=== PATIENT | male | born 1950 | race African-American/Black ===

== ENCOUNTER 2019-01-09 12:26 | Emergency (ER) | payer MEDICARE ==
[~2019-01-09] VITALS: Ht 167.6 cm; Wt 63.2 kg
[2019-01-09 13:06] VITALS: Ht 167.6 cm; Wt 63.2 kg
[2019-01-09] MEDS ORDERED: NEURONTIN 300300 MG PO (15:53)
[2019-01-09 16:18] VITALS: BP 149/71
== END 2019-01-09 16:13 | disposition home or self-care (01) ==
LOC: D.ER 12:26
DX: B02.9 Zoster without complications (principal)

== ENCOUNTER 2020-01-09 11:25 | Inpatient (IN) | payer MEDICARE ==
[~2020-01-09] VITALS: Ht 167.6 cm; Wt 59.0 kg
[~2020-01-09 11:25] MED LIST: NEURONTIN 300300 MG PO
[2020-01-09 11:59] LABS: BASOPHILS 0.1 % (0-2); EOSINOPHILS 0 % (0-7); HEMATOCRIT 39.7 % (42.0-54.0); HEMOGLOBIN 12.7 g/dL (13.5-17.5); IMMATURE GRANULOCYTES 0.3 % (0-5); LYMPHOCYTES 9.1 % (15-50); MCH 28.3 pg (26.0-34.0); MCV 88.6 fL (80.0-100.0); MEAN PLATELET VOLUME 10.9 fL (7.4-10.4); MONOCYTES 8.9 % (2-11); NEUTROPHILS 81.6 % (40-80); PLATELET COUNT 236 10x3/uL (130-400); RBC 4.48 10x6/uL (4.20-6.10); RDW 16.3 % (11.5-14.5); WBC 8.9 10x3/uL (4.8-10.8)
[2020-01-09 12:06] LABS: INR 1.18 (0.85-1.17); PROTIME 14.9 SECONDS (11.6-15.0)
[2020-01-09 12:11] LABS: CALC OSMOLALITY 266 mosm/kg (275-300); CALCIUM 8.9 mg/dL (8.5-10.1); CARBON DIOXIDE 29.2 mmol/L (21.0-32.0); CHLORIDE - SERUM 95 mmol/L (98-107); CREATININE - SERUM 1.3 mg/dL (0.6-1.3); GLUCOSE 99 mg/dL (74-106); POTASSIUM - SERUM 3.4 mmol/L (3.5-5.1); SODIUM 133 mmol/L (136-145); UREA NITROGEN 16 mg/dL (7-18); eGFR NON AFRICAN AMERICAN 58 mL/min (90-120)
--- NOTE | 2020-01-09 12:13 | NUR ---
PT ARRIVED TO ER 8 WITH COMPLETE ATIRE SATURATED WITH URINE, PT STATES HE LIVES ALONE AND NO ONE HELPS HIM WITH HIS ADL'S, PT STATES HE IS ALSO UNABLE TO AMBULATE.
[2020-01-09 12:25] LABS: BILIRUBIN NEGATIVE (NEGATIVE); EPITHELIAL CELLS 0-5 /hpf (0-5); GLUCOSE NEGATIVE (NEGATIVE); KETONE SMALL mg/dL (NEGATIVE); NITRITE NEGATIVE (NEGATIVE); SPECIFIC GRAVITY 1.015 (1.005-1.020); UROBILINOGEN NORMAL (NORMAL); WHITE CELLS - URINE OCC /hpf (NEGATIVE)
[2020-01-09 12:26] LABS: BACTERIA MODERATE /hpf (NEGATIVE)
[2020-01-09 12:29] LABS: ALBUMIN 3.1 g/dL (3.4-5.0); ALKALINE PHOSPHATASE 123 U/L (30-120); ALT (SGPT) 38 U/L (10-68); BILIRUBIN - TOTAL 0.88 mg/dL (0.2-1.3); CKMB 2.1 U/L (0.0-3.6); PRO BNP 1151 pg/mL (0-125); PROTEIN - SERUM 8.8 g/dL (6.4-8.2); THYROID STIMULATING HORMONE 2.98 uIU/mL (0.36-3.74)
[2020-01-09 12:30] LABS: CREATINE KINASE 884 UL (21-232); TROPONIN-I < 0.017 ng/mL (0.000-0.060)
[2020-01-09 13:03] LABS: UDS - AMPHET NEGATIVE QUAL (NEGATIVE); UDS - BARB NEGATIVE QUAL (NEGATIVE); UDS - BENZO NEGATIVE QUAL (NEGATIVE); UDS - COCAINE NEGATIVE QUAL (NEGATIVE); UDS - OPIATE NEGATIVE QUAL (NEGATIVE); UDS - PCP NEGATIVE QUAL (NEGATIVE); UDS - THC NEGATIVE QUAL (NEGATIVE)
[2020-01-09 14:08] VITALS: BP 191/80
[2020-01-09 16:45] VITALS: BP 178/77; BMI 21.0
--- NOTE | 2020-01-09 17:03 | NUR ---
PT ARRIVES TO ROOM VIA STRETCHER ESCORTED BY ER NURSE. PT IS AAO X 4 AND ANSWERS QUESTIONS APPROPRIATELY BUT SLOWLY. PT IS A POOR HISTORIAN FOR HEALTH HISTORY. PT REPORTS PAIN TO LEFT HIP RATED 10/10 AND DESCRIBED SHARP AND SHOOTING. BLE EDEMA NOTED AND BLE ARE DRY/SCALY. BILATERAL PEDAL PULSES ARE PALP BUT FAINT AND CAP REFILL IS < 3. PT DENIES PRESENCE OF NUMBNESS/TINGLING AT THIS TIME. ADMISSION REQUIREMENTS COMPLETED. ALL FALL PRECAUTIONS IN PLACE EXCEPT FOR YELLOW GOWN. PT STATES HE WOULD LIKE TO STAY IN CURRENT GOWN THAT HE IS WEARING. INCENTIVE SPIROMETER AT BEDSIDE. PT EDUCATED ON USE AND IMPORTANCE OF USE. PT VERBALIZES UNDERSTANDING. BED IS IN THE LOWEST POSITION. CALL LIGHT AND BEDSIDE TABLE ARE WITHIN REACH. SIDE RAILS X 2. PT DENIES FURTHER NEEDS. WILL CONT TO MONITOR.
[2020-01-09 20:00] VITALS: BP 162/70
--- NOTE | 2020-01-09 20:00 | NUR ---
ALERT RESTING IN BED DENIES PAIN OR NEEDS AT THIS TIME, SEE SHIFT ASSESSMENT, CALL LIGHT IN REACH
[2020-01-10 05:34] LABS: BASOPHILS 0.2 % (0-2); EOSINOPHILS 0.3 % (0-7); HEMATOCRIT 34.4 % (42.0-54.0); HEMOGLOBIN 10.8 g/dL (13.5-17.5); IMMATURE GRANULOCYTES 0.3 % (0-5); LYMPHOCYTES 17.8 % (15-50); MCH 27.7 pg (26.0-34.0); MCHC 31.4 g/dL (31.0-37.0); MCV 88.2 fL (80.0-100.0); MONOCYTES 13.1 % (2-11); NEUTROPHILS 68.3 % (40-80); PLATELET COUNT 212 10x3/uL (130-400); RDW 16.4 % (11.5-14.5)
[2020-01-10 05:49] LABS: WBC 6.3 10x3/uL (4.8-10.8)
[2020-01-10 06:00] LABS: ANION GAP 11.2 mmol/L (8-16); BILIRUBIN - TOTAL 0.68 mg/dL (0.2-1.3); CALCIUM 7.5 mg/dL (8.5-10.1); CARBON DIOXIDE 27.3 mmol/L (21.0-32.0); CHOL - HDL RATIO 2.5 ratio (2.3-4.9); CREATININE - SERUM 1.3 mg/dL (0.6-1.3); LDL-HDL RATIO 1.3 ratio (1.5-3.5); MAGNESIUM - SERUM 1.9 mg/dL (1.8-2.4); POTASSIUM - SERUM 3.5 mmol/L (3.5-5.1); T4 THYROXIN - FREE 1.14 ng/dL (0.76-1.46); THYROID STIMULATING HORMONE 2.4 uIU/mL (0.36-3.74)
[2020-01-10 06:08] LABS: PROTEIN - SERUM 6.4 g/dL (6.4-8.2)
[2020-01-10 07:38] VITALS: BP 154/69
--- NOTE | 2020-01-10 07:38 | NUR ---
HE IS QUIET, DENIES ANY PAIN. HE HAS BILATERAL LEG EDEMA WITH DRY CRACKED SKIN. WAITING TO GET CLEARED FOR SURGERY, PLANED SURGERY FOR TOMORROW.
--- NOTE | 2020-01-10 11:58 | MORECARE ---
CASE MANAGEMENT DISCHARGE SUMMARY PATIENT: MSIA MCKINNON UNIT: [id number] ADM DATE: 01/09/20 AGE: 69 : 52 SEX: M ROOM/BED: D.2232 AUTHOR: TERESA YANES PHYSICIAN: REFERRING PHYSICIAN: RHONDA CHAMBERS MD DATE OF SERVICE: 01/10/20 Discharge Plan Patient Name: MISA MCKINNON Facility: [facility]:[place] : 1950 Planned Disposition: Inpatient Rehab Anticipated Discharge Date: Discharge Date: Expected LOS: Initial Reviewer: [email or web address] Initial Review Date: 01/10/2020 Generated: 01/10/20 12:58 pm Patient Name: MISA MCKINNON Page 17486 at 1158 All edits/amendments must be made on the electronic document DICTATION DATE: 01/10/20 1158 IMPACT HAMMER OPERATOR: ALY 01/10/20 1158 RPT#: [id number] DC DATE: STATUS: ADM IN [facility] [address] [place] [address] END OF REPORT
[2020-01-10 12:03] VITALS: BP 141/65
--- NOTE | 2020-01-10 13:14 | MORECARE ---
CASE MANAGEMENT DISCHARGE SUMMARY PATIENT: MISA MCKINNON UNIT: [id number] ADM DATE: 01/09/20 AGE: 69 : 52 SEX: M ROOM/BED: D.2232 AUTHOR: JOAQUÍN,DOC PHYSICIAN: REFERRING PHYSICIAN: RHONDA CHAMBERS MD DATE OF SERVICE: 01/10/20 Discharge Plan Patient Name: MISA MCKINNON [facility] : 1950 Planned Disposition: Inpatient Rehab Anticipated Discharge Date: Discharge Date: Expected LOS: Initial Reviewer: [email or web address] Initial Review Date: 01/10/2020 Generated: 01/10/20 2:13 pm Comments DCP- Discharge Planning Updated by [email or web address]: Charan Damian on 01/10/20 12:[address] Patient Name: MISA MCKINNON Admission Status: ER Accout number: [id number] Admission Date: 01-09-2020 : 1950 Admission Diagnosis:FRACTURE OF UNSP PART OF NECK OF LEFT FEMUR, INIT Attending: RHONDA CHAMBERS Current LOS: 1 Anticipated DC Date: Planned Disposition: Inpatient Rehab Primary Insurance: [employer] MEDICARE ADV PLANNED EXTERNAL PROVIDER: [facility] Discharge Planning Comments: CM MET WITH PT IN ROOM TO DISCUSS DISCHARGE PLANNING AND NEEDS. PT REPORTS LIVING AT HOME INDEPENDENTLY AND ALONE. PT HAS NO MEDICAL EQUIPMENT AND NO OUTSIDE SERVICES ASSISTING IN THE HOME. CM DISCUSSED AVAILABILITY OF HOME HEALTH, REHAB SERVICES AND MEDICAL EQUIPMENT. PT REPORTS FALL AT HOME WITH HIP FRACTURE, HE FEELS HE NEEDS REHAB. CM DISCUSSED REHAB SERVICES, LOCATIONS AND PROVIDERS, PT WANTS REHAB AT [facility]. CHOICE SIGNED. CM WAITING SURGERY COMPLETION; PT WILL NEED THERAPY EVALUATION AND INPATIENT REHAB PRESCREENING ORDERS. CM TO CONTINUE TO FOLLOW AND ASSIST NEEDED. Field Service Consultant: Charan Damian DCPIA - Discharge Planning Initial Assessment Updated by [id number]: Charan Damian on 01/10/20 1:07 pm * Is the patient Alert and Oriented? Yes * How many steps to enter\exit or inside your home? ELEVATOR * PCP NONE * Pharmacy [facility] * Preadmission Environment Home Alone * ADLs Independent * Equipment None * Other Equipment NO MEDICAL EQUIPMENT PROVIDER * List name and contact numbers for known caregivers / representatives who currently or will assist patient after discharge: NONE PER PATIENT * Verbal permission to speak to the caregivers and representatives has been obtained from the patient. N/A * Community resources currently utilized None * Please name any agencies selected above. NONE * Additional services required to return to the preadmission environment? Yes * Can the patient safely return to the preadmission environment? Yes * Has this patient been hospitalized within the prior 30 days at any hospital? No Last DP export: 01/10/20 10:58 am Patient Name: MISA MCKINNON Page 52423 at 1314 All edits/amendments must be made on the electronic document DICTATION DATE: 01/10/20 131 SKIN PILER: ALY 01/10/20 1313 RPT#: [id number] DC DATE: STATUS: ADM IN [facility] [address] [place] [address] END OF REPORT
[2020-01-10 16:51] VITALS: BP 149/64
--- NOTE | 2020-01-10 17:27 | NUR ---
I have reviewed this patient and I concur with the Shift Assessment completed by the Licensed Practical Nurse today this shift.
[2020-01-10 20:00] VITALS: BP 158/62
--- NOTE | 2020-01-10 20:00 | NUR ---
ALERT SITTING UP IN BED, DENIES PAIN OR NEEDS AT THIS TIME, SEE SHIFT ASSESSMENT, CALL LIGHT IN REACH
[2020-01-11] VITALS (12 sets, daily range): BP systolic 150–183; BP diastolic 62–75
[2020-01-11 07:52] LABS: BASOPHILS 0.1 % (0-2); EOSINOPHILS 0.4 % (0-7); HEMOGLOBIN 10.3 g/dL (13.5-17.5); IMMATURE GRANULOCYTES 0.2 % (0-5); LYMPHOCYTES 22.8 % (15-50); MCH 27.5 pg (26.0-34.0); MCHC 31.2 g/dL (31.0-37.0); MCV 88.2 fL (80.0-100.0); MEAN PLATELET VOLUME 10.2 fL (7.4-10.4); MONOCYTES 12.5 % (2-11); PLATELET COUNT 188 10x3/uL (130-400); RBC 3.74 10x6/uL (4.20-6.10); RDW 16.4 % (11.5-14.5); WBC 8.5 10x3/uL (4.8-10.8)
[2020-01-11 07:59] LABS: ANION GAP 8.5 mmol/L (8-16); CALCIUM 7.6 mg/dL (8.5-10.1); CARBON DIOXIDE 27.1 mmol/L (21.0-32.0); CREATININE - SERUM 1.1 mg/dL (0.6-1.3); POTASSIUM - SERUM 3.6 mmol/L (3.5-5.1)
--- NOTE | 2020-01-11 08:39 | NUR ---
EKG DONE AT THIS TIME.
--- NOTE | 2020-01-11 09:23 | NUR ---
RESTING QUIETLY IN BED. AWAKE AND ALERT. ORIENTED X3. NO C/O AT THIS TIME. LUNGS ARE CLEAR BILATERALLY, NO COUGH NOTED. SKIN IS INTACT WITHOUT REDNESS. IV TO LEFT FOREARM IS PATENT WITHOUT REDNESS AT INSERTION SITE. TOOK AM MEDS WITHOUT DIFFICULTY. DENIES NEEDS.
--- NOTE | 2020-01-11 10:15 | NUR ---
OFF UNIT VIA BED TO SURGERY.
--- NOTE | 2020-01-11 10:37 | NUR ---
ATTEMPTED TO CALL FAMILY AND LET THEM KNOW HE HAD GONE FOR SURGERY BUT NO ANSWER.
--- NOTE | 2020-01-11 13:09 | NUR ---
PT VERY HYPERTENSIVE BUT REMAINS RESTING QUIETLY IN BED. DENIES ANY PAIN OR NEEDS. WILL TREAT PER ANESTHESIA AND CTM.
--- NOTE | 2020-01-11 14:05 | NUR ---
RETURNED FROM SURGERY.. AWAKE AND ALERT. ORIENTED X3 NO C/O AT THIS TIME.
--- NOTE | 2020-01-11 19:51 | NUR ---
ATE ABOUT 25% OF SUPPER TRAY. DENIES NEEDS. WAS COMPLAING OF PAIN IN HIS PENIS EARLIER AND WAS GIVEN BUT BALM TO USE ON SAME. REPORTS SOME RELIEF WITH THIS. DENIES NEEDS. NO CHANGES NOTED.
--- NOTE | 2020-01-11 23:30 | NUR ---
TEMP 102.4 TYLENOL 650MG PO GIVEN RECHECK TEMP 100.2
[2020-01-12 00:06] VITALS: BP 167/67
[2020-01-12 06:05] LABS: BASOPHILS 0.1 % (0-2); EOSINOPHILS 0 % (0-7); HEMATOCRIT 36.8 % (42.0-54.0); HEMOGLOBIN 11.6 g/dL (13.5-17.5); IMMATURE GRANULOCYTES 0.3 % (0-5); LYMPHOCYTES 6.6 % (15-50); MCH 27.7 pg (26.0-34.0); MCHC 31.5 g/dL (31.0-37.0); MCV 87.8 fL (80.0-100.0); MEAN PLATELET VOLUME 11.3 fL (7.4-10.4); MONOCYTES 7.7 % (2-11); NEUTROPHILS 85.3 % (40-80); RBC 4.19 10x6/uL (4.20-6.10); RDW 16.5 % (11.5-14.5)
[2020-01-12 06:14] LABS: PLATELET COUNT 234 10x3/uL (130-400); WBC 16.2 10x3/uL (4.8-10.8)
[2020-01-12 06:25] LABS: ANION GAP 11.9 mmol/L (8-16); CALCIUM 7.6 mg/dL (8.5-10.1); CARBON DIOXIDE 22.7 mmol/L (21.0-32.0); CREATININE - SERUM 1.2 mg/dL (0.6-1.3); POTASSIUM - SERUM 3.6 mmol/L (3.5-5.1)
--- NOTE | 2020-01-12 07:33 | NUR ---
LEFT HIP DRESSING CLEAN DRY AND INTACT. IV TO LEFT A.C, CANULIA SUSAN OUT. CANUALA INTACT. IV RESITED WITH 22 MASOUD TO RIGHT F.A. IN TACT AND MARLI WITH 1/2 NS AT 100ML/HR. CALL LIGHT IN REACH.
[2020-01-12 08:43] VITALS: BP 142/63
[2020-01-12 09:04] VITALS: BP 142/63
[2020-01-12 16:13] VITALS: BP 159/67
--- NOTE | 2020-01-12 18:48 | NUR ---
ARU NOTE - Referral received. ARU will continue to monitor the patient for improvement in status. Thank you
--- NOTE | 2020-01-12 20:15 | NUR ---
EARLINE BECKHAM COLLECTED URINE AND COVID19 TEST AT APROX 1945. BROUGHT BOTH SPECIMENS TO THE LAB.
[2020-01-12 20:27] LABS: BILIRUBIN NEGATIVE (NEGATIVE); GLUCOSE NEGATIVE (NEGATIVE); KETONE SMALL mg/dL (NEGATIVE); NITRITE NEGATIVE (NEGATIVE); SPECIFIC GRAVITY 1.015 (1.005-1.020); UROBILINOGEN NORMAL (NORMAL)
[2020-01-12 20:28] LABS: BACTERIA FEW /hpf (NEGATIVE); WHITE CELLS - URINE RARE /hpf (NEGATIVE)
[2020-01-13 01:10] VITALS: BP 135/62
--- NOTE | 2020-01-13 01:26 | NUR ---
RECIEVED REPORT FROM AMIE PATTEN IN MED SURG.. ARRIVED TO FLOOR ON A BED. TRANSFER TO BED BY 2 NURSES. IV TO RT FA WITH 1/2 NS AT 100CC/HR. DSG TO LT HIP CDI. F/C INTACT WITH CLESR YELLOW URINE DRAINING TO BEDSIDE DRAINAGE BAG. ALERT AND ORIENTED X3. SAID YEAR IS 2023. REORIENTED TO YEAR. DENIES ANY NEEDS AT THIS TIME. PHYSICIAN AIDE WITH DILAUDID IN PLACE. DENIES ANY PAIN.
[2020-01-13 04:55] LABS: BASOPHILS 0.1 % (0-2); EOSINOPHILS 0.1 % (0-7); HEMOGLOBIN 10.9 g/dL (13.5-17.5); IMMATURE GRANULOCYTES 0.4 % (0-5); LYMPHOCYTES 13.1 % (15-50); MCHC 32.1 g/dL (31.0-37.0); MCV 87.4 fL (80.0-100.0); MEAN PLATELET VOLUME 11.1 fL (7.4-10.4); MONOCYTES 9.5 % (2-11); NEUTROPHILS 76.8 % (40-80); PLATELET COUNT 225 10x3/uL (130-400); RBC 3.89 10x6/uL (4.20-6.10); RDW 16.6 % (11.5-14.5); WBC 15.3 10x3/uL (4.8-10.8)
[2020-01-13 04:59] LABS: ANION GAP 9.3 mmol/L (8-16); CALCIUM 7.9 mg/dL (8.5-10.1); CARBON DIOXIDE 26.7 mmol/L (21.0-32.0)
[2020-01-13 05:15] VITALS: BP 142/78
[2020-01-13 05:16] LABS: CREATININE - SERUM 1.8 mg/dL (0.6-1.3)
--- NOTE | 2020-01-13 07:00 | NUR ---
RECEIVED REPORT. ASSUMED CARE OF PATIENT. PATIENT REMAINS IN ISOLATION FOR POSSIBLE COVID-19. PATIENT IS SR ON TELEMETRY, RATE OF 64.
[2020-01-13 07:30] VITALS: BP 138/72
--- NOTE | 2020-01-13 08:26 | NUR ---
PATIENT SITTING IN BED. ASSISTED WITH AM MEAL SETUP. PATIENT PROVIDED WITH INSTRUCTIONS ON BRAKE REPAIRER HYDRAULIC. PATIENT PROVIDED WITH INCENTIVE SPIROMETER AT THIS TIME AND INSTRUCTIONS PROVIDED. CALL LIGHT WITHIN REACH. NO DISTRESS. DRESSING TO LEFT LATERAL THIGH/HIP, CLEAN, DRY AND INTACT. NO DISTRESS.
--- NOTE | 2020-01-13 10:30 | NUR ---
COMPLETE BED BATH AND LINEN CHANGE PROVIDED. NO DISTRESS. CALL LIGHT WITHIN REACH.
[2020-01-13 11:52] VITALS: BP 135/61
[2020-01-13 14:33] VITALS: BP 128/61
--- NOTE | 2020-01-13 14:52 | NUR ---
PATIENT SITTING UP IN BED, EYES OPEN. ATTENTION TOWARD THE TELEVISION. CALL LIGHT WITHIN REACH. NO DISTRESS.
--- NOTE | 2020-01-13 18:41 | NUR ---
RESTING IN BED. CALL LIGHT WITHIN REACH. NO DISTRESS. DENIES NEEDS AT THIS TIME.
[2020-01-13 20:34] VITALS: BP 127/53
[2020-01-14 04:36] VITALS: BP 144/59
[2020-01-14 05:17] LABS: BASOPHILS 0.1 % (0-2); EOSINOPHILS 2.9 % (0-7); HEMOGLOBIN 9.6 g/dL (13.5-17.5); IMMATURE GRANULOCYTES 0.1 % (0-5); LYMPHOCYTES 17.5 % (15-50); MCH 27.9 pg (26.0-34.0); MCV 87.2 fL (80.0-100.0); MEAN PLATELET VOLUME 10.5 fL (7.4-10.4); MONOCYTES 9.6 % (2-11); NEUTROPHILS 69.8 % (40-80); PLATELET COUNT 215 10x3/uL (130-400); RBC 3.44 10x6/uL (4.20-6.10); RDW 16.4 % (11.5-14.5)
[2020-01-14 05:19] LABS: WBC 10.6 10x3/uL (4.8-10.8)
[2020-01-14 05:25] LABS: ANION GAP 8.6 mmol/L (8-16); CALCIUM 7.6 mg/dL (8.5-10.1); CARBON DIOXIDE 26.3 mmol/L (21.0-32.0); POTASSIUM - SERUM 3.9 mmol/L (3.5-5.1)
[2020-01-14 05:27] LABS: CREATININE - SERUM 1.2 mg/dL (0.6-1.3)
[2020-01-14 08:37] VITALS: BP 151/62
--- NOTE | 2020-01-14 08:47 | NUR ---
AM MEDS GIVEN AT THIS TIME. PT A/O X4, RESP EVEN AND NONLABORED ON RA. RT FA INFUSING NS AT 100. AND DILAUDID LOOM SETTER FOURDRINIER. BARTH DRAINING YELLOW URINE TO GRAVITY. PT DENIES ANY NEEDS AT THIS TIME. CALL LIGHT IN REACH, NAD NOTED, WILL CONTINUE TO MONITOR.
--- NOTE | 2020-01-14 09:38 | NUR ---
Rehab Prescreening Consult recieved and the chart has been reviewed. He is managed Medicare and will require a preauth. He is currently pending a Covid 19 screening test and will need to be negative. He will also need an OT eval to submit to the insurance for review. Dianne Dumont RN Clinical Liaison, Rehab
--- NOTE | 2020-01-14 09:58 | OP ---
PATIENT NAME: MISA MCKINNON MEDICAL RECORD: [id number] :54 LOCATION:D. D.2133 ADMISSION DATE:01/09/20 SURGEON: DEEJAY SHUKLA MD DATE OF OPERATION: 01/11/2020 PREOPERATIVE DIAGNOSIS: Displaced left femoral neck fracture. POSTOPERATIVE DIAGNOSIS: Displaced left femoral neck fracture. PROCEDURE: Bipolar endoprosthetic replacement for left femoral neck fracture. SURGEON: Deejay Shukla MD MANAGER ACTIVITIES: None. ANESTHESIOLOGIST: Quoc Moreno MD SUMMARY OF PATHOLOGIC FINDINGS: The patient did have a severe displaced femoral neck fracture with posterior comminution into the calcar; however, it did not jeopardize the patient's bipolar placement. IMPLANTS USED: Beata Accolade II system. OPERATIVE SUMMARY IN DETAIL: After obtaining the appropriate preoperative orthopedic surgery consent as well as anesthetic consultation, evaluation and clearance, the patient was brought to the operating room and placed on the operating table in supine position. After adequate general laryngeal mask airway anesthesia was administered, the patient was placed in right lateral decubitus position. All pressure points were well padded to include down leg peroneal pad as well as axillary roll. The patient was held firmly to the operating table using the vacuum pack suction system. Left lower extremity and hip were then prepped and draped in routine sterile fashion. At this point, the appropriate timeout was taken and agreed upon by all given the patient's unique identifiers. A curvilinear incision was made over the greater trochanter, taken along the IT band which was split in line with fibers. The IT band revealed gluteus medius minimus attachment to the greater trochanter. These were reflected anteriorly. The hip capsule was split in a T-type fashion and saved for later reapproximation. Femoral neck cut was using the femoral neck cutting guide for the Accolade system and the femoral head was then extracted. Copious fragments were found given the posterior comminution of the calcar. These were all removed to ensure excellent articulating with the bipolar. Serial and sequential reaming and broaching were done of the proximal femur for a size 5 proximal bipolar stem. Trials were undertaken. It was felt that a standard on a 51 was most appropriate. This was articulated and placed on the Lopez taper tamped into place and the hip was reduced. At this point, radiographs were taken and showed excellent position and placement with good rastafari of the patient's leg lengths. Wound was copiously irrigated and sealed with a gram of vancomycin and gram of tobramycin. Hip capsule was closed using the #2 Ethibond that had been previously placed. Gluteus medius and minimus were then reapproximated to the greater trochanter using #5 Ethibond and transosseous fashion. Having completed this, the IT band was closed with #2 Ethibond followed by 0 Vicryl, 2-0 Vicryl, and skin donato. Sterile dressings were applied. The patient was awakened and taken to the recovery room in stable condition. All final needle and sponge counts were correct. OPERATIVE REPORT [id number] MISA MCKINNON TRANSINT:[id number] Voice Confirmation ID: [id number] DOCUMENT ID: [id number] GAYLA KAMARA, DEEJAY LOERA at 0958 CC: [id number] DICTATION DATE: 01/13/20 1026 CASTING MACHINE ADJUSTER: 01/13/20 2145 ADM IN [facility] [address] [place] [address]
[2020-01-14 12:02] VITALS: BP 124/56
[2020-01-14 14:41] VITALS: Ht 167.6 cm; Wt 59.0 kg
[2020-01-14 15:24] VITALS: BP 132/56
--- NOTE | 2020-01-14 15:25 | NUR ---
NORCO GIVEN FOR PAIN LEVEL OF 6/10. ALSO PROVIDED PT WITH CUP OF ICE WATER. PT DENIES ANY OTHER NEEDS AT THIS TIME. CALL LIGHT IN REACH,NAD NOTED, WILL CONTINUE TO MONITOR.
[2020-01-14 20:52] VITALS: BP 148/58
[2020-01-15 01:04] VITALS: BP 152/62
[2020-01-15 04:59] VITALS: BP 139/60
[2020-01-15 05:22] LABS: BASOPHILS 0 % (0-2); EOSINOPHILS 2.8 % (0-7); HEMATOCRIT 30.2 % (42.0-54.0); HEMOGLOBIN 9.6 g/dL (13.5-17.5); IMMATURE GRANULOCYTES 0.2 % (0-5); LYMPHOCYTES 19.1 % (15-50); MCH 27.6 pg (26.0-34.0); MCHC 31.8 g/dL (31.0-37.0); MCV 86.8 fL (80.0-100.0); MEAN PLATELET VOLUME 10.5 fL (7.4-10.4); MONOCYTES 9.5 % (2-11); NEUTROPHILS 68.4 % (40-80); RBC 3.48 10x6/uL (4.20-6.10); RDW 16.1 % (11.5-14.5); WBC 8.9 10x3/uL (4.8-10.8)
[2020-01-15 05:26] LABS: PLATELET COUNT 278 10x3/uL (130-400)
[2020-01-15 05:32] LABS: ANION GAP 10.8 mmol/L (8-16); CALCIUM 7.7 mg/dL (8.5-10.1); CARBON DIOXIDE 26.8 mmol/L (21.0-32.0); CREATININE - SERUM 1.1 mg/dL (0.6-1.3); POTASSIUM - SERUM 3.6 mmol/L (3.5-5.1)
[2020-01-15 08:13] VITALS: BP 150/58
--- NOTE | 2020-01-15 08:17 | NUR ---
AM MEDS GIVEN AT THIS TIME. ALSO GAVE NORCO FOR PAIN LEVEL O F4/10. BARTH CATHETER DRAINING YELLOW URINE TO GRAVITY. RT AC IV SL. PT DENIES ANY OTHER NEEDS AT THIS TIME. CALL LIGHT IN REACH,NAD NOTED,W ILL CONTINUE TO MONITOR.
[2020-01-15] MEDS ORDERED: ELIQUIS2.5 MG PO (11:46)
[2020-01-15] MEDS ORDERED: NORVASC2.5 MG PO (11:47)
[2020-01-15] MEDS ORDERED: HYDROCODON-ACE1 EA10 PO (11:47)
--- NOTE | 2020-01-15 11:54 | NUR ---
REPORT CALLED TO JASMINE. PT TRANSFERED TO UNIT VIA BED, WITH ALL BELONGINGS, NAD NOTED.
--- NOTE | 2020-01-15 12:09 | NUR ---
PATIENT ADMITTED TO ROOM 2232.
[2020-01-15 12:17] VITALS: BP 126/42
--- NOTE | 2020-01-15 13:25 | NUR ---
RESTING IN BED. DENIES NEEDS. WILL CONTINUE TO MONITOR.
--- NOTE | 2020-01-15 16:13 | NUR ---
Rehab Note- Have started PreAuth & have faxed all clinicals to [facility] on behalf of [facility] for review for possible inpatient acute rehab stay. Ref#[id number]. Will continue to await determination at this time. Thank you for this referral! Belem Burris RN Clinical Liaison, [facility] Rehab
[2020-01-15 16:14] VITALS: BP 155/61
--- NOTE | 2020-01-15 20:00 | NUR ---
ALERT RESTING IN BED DENIES PAIN OR NEEDS AT THIS TIME, SEE SHIFT ASSESSMENT, CALL LIGHT IN REACH
[2020-01-15 21:55] VITALS: BP 145/57
[2020-01-16 00:55] VITALS: BP 144/58
[2020-01-16 05:27] LABS: BASOPHILS 0.1 % (0-2); EOSINOPHILS 2.4 % (0-7); HEMATOCRIT 29.1 % (42.0-54.0); HEMOGLOBIN 9.4 g/dL (13.5-17.5); IMMATURE GRANULOCYTES 0.2 % (0-5); LYMPHOCYTES 21.7 % (15-50); MCH 28.1 pg (26.0-34.0); MCHC 32.3 g/dL (31.0-37.0); MCV 87.1 fL (80.0-100.0); MEAN PLATELET VOLUME 10.2 fL (7.4-10.4); MONOCYTES 11.9 % (2-11); NEUTROPHILS 63.7 % (40-80); RBC 3.34 10x6/uL (4.20-6.10); WBC 8.6 10x3/uL (4.8-10.8)
[2020-01-16 05:47] LABS: PLATELET COUNT 354 10x3/uL (130-400)
[2020-01-16 06:04] LABS: ANION GAP 11.4 mmol/L (8-16); CALCIUM 7.8 mg/dL (8.5-10.1); CARBON DIOXIDE 28.5 mmol/L (21.0-32.0); CREATININE - SERUM 1.1 mg/dL (0.6-1.3); POTASSIUM - SERUM 3.9 mmol/L (3.5-5.1)
[2020-01-16 06:50] VITALS: BP 144/66
--- NOTE | 2020-01-16 07:00 | NUR ---
RECEIVED PT FROM REAL ESTATE MANAGER. UPON ENTERING ROOM PT IS SUPINE IN BED, RESTING. PT HAS A RIGHT FOREARM IV THAT IS SALINE LOCKED. ROOM AIR. PT IS POST OP 5 DAYS FROM A LEFT HIP REPAIR, THE INCISION HAS A DRESSING C/D/I. BARTH CATHETER IN PLACE FOR RETENTION. PT HAS TELEMETRY ON. IS ON ELIQUIS FOR DVT. DENIES ANY NEEDS AT THIS TIME. WILL CONTINUE TO MONITOR.
--- NOTE | 2020-01-16 07:15 | NUR ---
PT RESTING COMFORTABLY IN BED UPON ENTERING. ASSESSMENT PERFORMED AT THIS TIME. PT APPEARS ALERT AND ORIENTED. PER REPORT PT IS SLOW TO RESPOND BUT IS ABLE TO COMMUNICATE EFFECTIVELY. PT DENIES ANY NEEDS AT THIS TIME. BED IN LOWEST POSITION, BED RAILS X2, CALL LIGHT WITHIN REACH. WILL CONTINUE TO MONITOR.
[2020-01-16 09:04] VITALS: BP 160/69
--- NOTE | 2020-01-16 09:18 | NUR ---
ADMINISTERED MORNING MEDS. NO DIFFICULTY SWALLOWING. PT IS UPRIGHT IN BED EATING BREAKFAST. DENIES ANY NEEDS AT THIS TIME. WILL CONTINUE TO MONITOR.
--- NOTE | 2020-01-16 10:21 | NUR ---
Rehab Note- Received call from [facility] on behalf of [facility] stating that the district medical examiner was currently reviewing the requested auth for what she had "LTACH", clarified that it was incorrect & was for an inpatient acute rehab stay, stated she would get it corrected at this time & would be giving me a call back. Will continue to await determination at this time. Thank you for this referral! Belem Burris RN Clinical Liaison, [facility] Rehab
--- NOTE | 2020-01-16 11:32 | NUR ---
OT NOTE: PT VERY WEAK; SITTING UP IN CHAIR; ATTEMPTED SIT TO STAND WITH MAX ASSIST. EDUCATED PT ON UE EXS, HOWEVER, APPROX 50% DEFECIT IN SHOULDER RANGE. ONLY ABLE TO TOLERATE A FEW REPS BEFORE REQUIRING EXT REST BREAK. PT ABLE TO PERFORM SIMPLE GROOMING... REMAINS SLOW TO RESPOND TO QUESTIONS AND TASKS. CONT TO RECOMMEND IP REHAB FOR STRENGTHENING. ARDEN WILKES, OTR/L [id number]
--- NOTE | 2020-01-16 11:37 | NUR ---
PT RESTING IN BED SIDE CHAIR. DENIES ANY NEEDS AT THIS TIME. WILL CONTINUE TO MONITOR.
--- NOTE | 2020-01-16 13:04 | NUR ---
I have reviewed this patient and I concur with the Shift Assessment completed by the Licensed Practical Nurse today this shift.
[2020-01-16 13:41] VITALS: BP 154/60
--- NOTE | 2020-01-16 13:41 | NUR ---
Rehab Note- Received call from Swathi with [facility] on behalf of [facility], stating the patient had been approved for an inpatient acute rehab stay for 7 days, Auth #[id number], Swathi's contact #[phone], for clinical updates. Thank you for this referral! Belem Burris RN Clinical Liaison, [facility] Rehab
--- NOTE | 2020-01-16 15:47 | NUR ---
PT RESTING COMFORTABLY IN BED WITH EYES CLOSED. BREATHING EVEN AND UNLABORED. NO S/S OF DISTRESS NOTED. WILL CONTINUE TO MONITOR.
--- NOTE | 2020-01-16 16:20 | NUR ---
ATTMEPTED TO CONTACT REHAB TO GIVE REPORT. RECEIVING NURSE NOT AVAILABLE.
--- NOTE | 2020-01-16 16:45 | NUR ---
ATTEMPTED TO CONTACT NURSE KIRIT RECEIVING PATIENT IN REHAB. NURSE NOT AVAILABLE.
--- NOTE | 2020-01-16 17:09 | MORECARE ---
CASE MANAGEMENT DISCHARGE SUMMARY PATIENT: MISA MCKINNON UNIT: [id number] ADM DATE: 01/09/20 AGE: 69 : 52 SEX: M ROOM/BED: D.2232 AUTHOR: JOAQUÍNDOC PHYSICIAN: REFERRING PHYSICIAN: RHONDA CHAMBERS MD DATE OF SERVICE: 01/16/20 Discharge Plan Patient Name: MISA MCKINNON [facility] [facility] 1950 Planned Disposition: Inpatient Rehab Anticipated Discharge Date: Discharge Date: Expected LOS: Initial Reviewer: [email or web address] Initial Review Date: 01/10/2020 Generated: 01/16/20 6:09 pm Comments DCP- Discharge Planning Updated by [email or web address]: Mary Kay Howard on 01/16/20 4:[address] patient will be discharged to inpatient rehab today, imm served and explained. I asked if he wanted me to call any family to let them know and he did not. CM will continue to follow and assist as needed DCP- Discharge Planning Updated by [id number]: Charan Damian on 01/10/20 12:[address] Patient Name: MISA MCKINNON Admission Status: ER Accout number: [id number] Admission Date: 01-09-2020 : 1950 Admission Diagnosis:FRACTURE OF UNSP PART OF NECK OF LEFT FEMUR, INIT Attending: RHONDA CHAMBERS Current LOS: 1 Anticipated DC Date: Planned Disposition: Inpatient Rehab Primary Insurance: [facility] MEDICARE ADV PLANNED EXTERNAL PROVIDER: [facility] Discharge Planning Comments: CM MET WITH PT IN ROOM TO DISCUSS DISCHARGE PLANNING AND NEEDS. PT REPORTS LIVING AT HOME INDEPENDENTLY AND ALONE. PT HAS NO MEDICAL EQUIPMENT AND NO OUTSIDE SERVICES ASSISTING IN THE HOME. CM DISCUSSED AVAILABILITY OF HOME HEALTH, REHAB SERVICES AND MEDICAL EQUIPMENT. PT REPORTS FALL AT HOME WITH HIP FRACTURE, HE FEELS HE NEEDS REHAB. CM DISCUSSED REHAB SERVICES, LOCATIONS AND PROVIDERS, PT WANTS REHAB AT [facility]. CHOICE SIGNED. CM WAITING SURGERY COMPLETION; PT WILL NEED THERAPY EVALUATION AND INPATIENT REHAB PRESCREENING ORDERS. CM TO CONTINUE TO FOLLOW AND ASSIST NEEDED. Silver Buffer: Charan Damian DCPIA - Discharge Planning Initial Assessment Updated by [email or web address]: Charan Damian on 01/10/20 1:07 pm * Is the patient Alert and Oriented? Yes * How many steps to enter\exit or inside your home? ELEVATOR * PCP NONE * Pharmacy [facility] * Preadmission Environment Home Alone * ADLs Independent * Equipment None * Other Equipment NO MEDICAL EQUIPMENT PROVIDER * List name and contact numbers for known caregivers / representatives who currently or will assist patient after discharge: NONE PER PATIENT * Verbal permission to speak to the caregivers and representatives has been obtained from the patient. N/A * Community resources currently utilized None * Please name any agencies selected above. NONE * Additional services required to return to the preadmission environment? Yes * Can the patient safely return to the preadmission environment? Yes * Has this patient been hospitalized within the prior 30 days at any hospital? No Coverage Notice Reviewer: [email or web address] Arie Howard Notice Issued Date-Time: 01/16/2020 16:25 Notice Type: IM Discharge Notice Notice Delivered To: Patient Relationship to Patient: [employer] Name: Delivery Method: HAND - Hand Delivered [place] Days: Prior Verbal Notification: Recipient Understood Notice: Yes Recipient Signature: Yes Med Rec Note Co-signed by Attending: Coverage Notice Comment: Last DP export: 01/10/20 12:14 pm Patient Name: MISA MCKINNON Page [id number] at 1709 All edits/amendments must be made on the electronic document DICTATION DATE: 01/16/201708 [place] ATTENDANT: ALY 01/16/201708 RPT#: [id number] DC DATE: STATUS: ADM IN [place] [address] [place] [address] END OF REPORT
--- NOTE | 2020-01-16 18:15 | NUR ---
DC PT IV, CATHETER TIP INTACT. TOLERATED WELL. REMOVED HEART MONITOR. ALL DISCHARGE PAPERWORK FILLED OUT. PT IS GOING DOWN STAIRS TO REHAB. DENIES ANY NEEDS.
[2020-01-16 18:29] VITALS: BP 160/64
--- NOTE | 2020-01-17 13:34 | MORECARE ---
CASE MANAGEMENT DISCHARGE SUMMARY PATIENT: MISA MCKINNON UNIT: [id number] ADM DATE: 01/09/20 AGE: 69 : 52 SEX: M ROOM/BED: D.2232 AUTHOR: TERESA YANES PHYSICIAN: REFERRING PHYSICIAN: RHONDA CHAMBERS MD DATE OF SERVICE: 01/17/20 Discharge Plan Patient Name: MISA MCKINNON [facility] : 1950 Planned Disposition: Inpatient Rehab Anticipated Discharge Date: Discharge Date: 01/16/2020 Expected LOS: 0 Initial Reviewer: [email or web address] Initial Review Date: 01/10/2020 Generated: 01/17/20 2:34 pm Comments DCP- Discharge Planning Updated by [email or web address]: Mary Kay Howard on 01/16/20 4:[address] patient will be discharged to inpatient rehab today, imm served and explained. I asked if he wanted me to call any family to let them know and he did not. CM will continue to follow and assist as needed DCP- Discharge Planning Updated by [email or web address]: Charan Damian on 01/10/20 12:[address] Patient Name: MISA MCKINNON Admission Status: ER Accout number: [id number] Admission Date: 01-09-2020 : 1950 Admission Diagnosis:FRACTURE OF UNSP PART OF NECK OF LEFT FEMUR, INIT Attending: RHONDA CHAMBERS Current LOS: 1 Anticipated DC Date: Planned Disposition: Inpatient Rehab Primary Insurance: [facility] ADV PLANNED EXTERNAL PROVIDER: [facility] Discharge Planning Comments: CM MET WITH PT IN ROOM TO DISCUSS DISCHARGE PLANNING AND NEEDS. PT REPORTS LIVING AT HOME INDEPENDENTLY AND ALONE. PT HAS NO MEDICAL EQUIPMENT AND NO OUTSIDE SERVICES ASSISTING IN THE HOME. CM DISCUSSED AVAILABILITY OF HOME HEALTH, REHAB SERVICES AND MEDICAL EQUIPMENT. PT REPORTS FALL AT HOME WITH HIP FRACTURE, HE FEELS HE NEEDS REHAB. CM DISCUSSED REHAB SERVICES, LOCATIONS AND PROVIDERS, PT WANTS REHAB AT [facility]. CHOICE SIGNED. CM WAITING SURGERY COMPLETION; PT WILL NEED THERAPY EVALUATION AND INPATIENT REHAB PRESCREENING ORDERS. CM TO CONTINUE TO FOLLOW AND ASSIST NEEDED. Corduroy Cutting Supervisor: Charan Damian DCPIA - Discharge Planning Initial Assessment Updated by [email or web address]: Charan Damian on 01/10/20 1:07 pm * Is the patient Alert and Oriented? Yes * How many steps to enter\exit or inside your home? ELEVATOR * PCP NONE * Pharmacy [facility] * Preadmission Environment Home Alone * ADLs Independent * Equipment None * Other Equipment NO MEDICAL EQUIPMENT PROVIDER * List name and contact numbers for known caregivers / representatives who currently or will assist patient after discharge: NONE PER PATIENT * Verbal permission to speak to the caregivers and representatives has been obtained from the patient. N/A * Community resources currently utilized None * Please name any agencies selected above. NONE * Additional services required to return to the preadmission environment? Yes * Can the patient safely return to the preadmission environment? Yes * Has this patient been hospitalized within the prior 30 days at any hospital? No Coverage Notice Reviewer: [id number] Arie Howard Notice Issued Date-Time: 01/16/2020 16:25 Notice Type: IM Discharge Notice Notice Delivered To: Patient Relationship to Patient: Machine Staker Name: Delivery Method: HAND - Hand Delivered Rochelle Days: Prior Verbal Notification: Recipient Understood Notice: Yes Recipient Signature: Yes Med Rec Note Co-signed by Attending: Coverage Notice Comment: Last DP export: 01/16/20 4:09 pm Patient Name: MISA MCKINNON Page [id number] at 1334 All edits/amendments must be made on the electronic document DICTATION DATE: 01/17/20 1334 SUPERVISOR [employer]: ALY 01/17/20 1334 RPT#: [id number] DC DATE:01/16/20 STATUS: DIS IN [id number] [place] [address] END OF REPORT
== END 2020-01-16 18:39 | DRG 467 ==
LOC: D.ER 11:25 → D.MS 14:57 → D.M2 14:57 → D.MS 01-15 11:54
PROVIDERS: Family Medicine; Orthopaedic Surgery; ADMIT Family Medicine; ATTEND Family Medicine
PROC: 0SPS0JZ Removal of Synthetic Substitute from Left Hip Joint, Femoral Surface, Open Approach (ICD-10-PCS; 2020-01-11)
PROC: 0SRS0JZ Replacement of Left Hip Joint, Femoral Surface with Synthetic Substitute, Open Approach (ICD-10-PCS; principal; 2020-01-11 10:00)
DX: S72.002A Fracture of unspecified part of neck of left femur, initial encounter for closed fracture (principal); M62.82 Rhabdomyolysis; W19.XXXA Unspecified fall, initial encounter; I10 Essential (primary) hypertension; E11.65 Type 2 diabetes mellitus with hyperglycemia; D72.810 Lymphocytopenia; R09.02 Hypoxemia

== ENCOUNTER 2020-01-16 14:08 | Inpatient (IN) | payer MEDICARE ==
[~2020-01-16] VITALS: Ht 167.6 cm; Wt 59.0 kg
[~2020-01-16 14:08] MED LIST changes: +ELIQUIS2.5 MG PO; +HYDROCODON-ACE1 EA10 PO; +NORVASC2.5 MG PO
--- NOTE | 2020-01-16 19:25 | NUR ---
PT IN BED, NEW ADMIT, VITALS TAKEN, ASSESSMENTS COMPLETED, NO NEEDS NOTED,FALL PRECAUTIONS IN PLACE, FLUIDS/CALL LIGHT WITHIN REACH
[2020-01-16 20:15] VITALS: BP 139/54; BMI 21.0
[2020-01-17 06:18] LABS: BASOPHILS 0.1 % (0-2); EOSINOPHILS 4.3 % (0-7); HEMATOCRIT 29.2 % (42.0-54.0); HEMOGLOBIN 9.1 g/dL (13.5-17.5); IMMATURE GRANULOCYTES 0.2 % (0-5); LYMPHOCYTES 23.1 % (15-50); MCH 27.2 pg (26.0-34.0); MCHC 31.2 g/dL (31.0-37.0); MCV 87.2 fL (80.0-100.0); MEAN PLATELET VOLUME 9.9 fL (7.4-10.4); MONOCYTES 10.5 % (2-11); NEUTROPHILS 61.8 % (40-80); PLATELET COUNT 382 10x3/uL (130-400); RBC 3.35 10x6/uL (4.20-6.10); RDW 16.1 % (11.5-14.5); WBC 8.4 10x3/uL (4.8-10.8)
[2020-01-17 06:30] LABS: ANION GAP 8.8 mmol/L (8-16); CREATININE - SERUM 1.1 mg/dL (0.6-1.3); POTASSIUM - SERUM 3.8 mmol/L (3.5-5.1)
[2020-01-17 08:18] VITALS: BP 140/65
[2020-01-17 08:28] LABS: BILIRUBIN NEGATIVE (NEGATIVE); GLUCOSE NEGATIVE (NEGATIVE); KETONE NEGATIVE (NEGATIVE); NITRITE NEGATIVE (NEGATIVE); SPECIFIC GRAVITY 1.015 (1.005-1.020); UROBILINOGEN NORMAL (NORMAL); WHITE CELLS - URINE RARE /hpf (NEGATIVE)
[2020-01-17 08:29] LABS: BACTERIA FEW /hpf (NEGATIVE); EPITHELIAL CELLS RARE /hpf (0-5)
[2020-01-17 14:12] VITALS: Ht 167.6 cm; Wt 59.0 kg
--- NOTE | 2020-01-17 14:56 | NUR ---
PATIENT ADMITTED TO REHAB FROM ACUTE FLOOR. HE HAS NO PCP, DME OR ANY HOME SERVICES. DISCHARGE PLANS ARE FOR PATIENT TO RETURN HOME. WILL CONTINUE TO FOLLOW WITH PATIENT.HE WILL NEED A FOLLOW UP APPOINTMENT WITH DR. SHUKLA FOR ONE WEEK AT DISCHARGE.
--- NOTE | 2020-01-17 19:37 | NUR ---
PT IN BED, NO NEEDS NOTED, FALL PRECAUTIONS IN PLACE, FLUIDS/CALL LIGHT WITHIN REACH, UNCLAMPED BARTH FOR BLADDER TRAINING
--- NOTE | 2020-01-17 22:00 | NUR ---
PT HAD ELEVATED TEMP OF 99.8, TWO 325MG TYLENOL, FLUIDS/CALL LIGHT WITHIN REACH
[2020-01-18 00:07] VITALS: BP 128/61
--- NOTE | 2020-01-18 00:34 | NUR ---
PT IN BED WATCHING TV, TEMP DOWN TO 98.3, NO NEEDS NOTED, FLUIDS/CALL LIGHT WITHIN REACH
[2020-01-18 06:11] LABS: BASOPHILS 0.1 % (0-2); EOSINOPHILS 4.3 % (0-7); HEMATOCRIT 29.9 % (42.0-54.0); HEMOGLOBIN 9.3 g/dL (13.5-17.5); IMMATURE GRANULOCYTES 0.2 % (0-5); LYMPHOCYTES 24.3 % (15-50); MCH 27.3 pg (26.0-34.0); MCHC 31.1 g/dL (31.0-37.0); MCV 87.7 fL (80.0-100.0); MEAN PLATELET VOLUME 9.1 fL (7.4-10.4); MONOCYTES 9.2 % (2-11); NEUTROPHILS 61.9 % (40-80); PLATELET COUNT 418 10x3/uL (130-400); RBC 3.41 10x6/uL (4.20-6.10); WBC 8.4 10x3/uL (4.8-10.8)
[2020-01-18 06:26] LABS: ANION GAP 8.1 mmol/L (8-16); CALCIUM 8.1 mg/dL (8.5-10.1); CARBON DIOXIDE 30.9 mmol/L (21.0-32.0); CREATININE - SERUM 1.2 mg/dL (0.6-1.3)
[2020-01-18 08:00] VITALS: BP 135/64
--- NOTE | 2020-01-18 14:12 | RHP ---
PATIENT: MISA MCKINNON MEDICAL RECORD: [id number] ACCOUNT: [id number] LOCATION:[facility] : 54 ADMISSION DATE: 01/16/20 REHABILITATION HISTORY AND PHYSICAL EXAMINATION POST ADMISSION PHYSICIAN EXAMINATION ADMITTING DIAGNOSES: Subcapital femoral neck fracture status post left bipolar endoprosthesis and also rhabdomyolysis. HISTORY OF PRESENT ILLNESS: The patient is a 69-year-old gentleman that presented to the ER stating that he had fallen approximately 3 days prior to this, was too weak to get up and unable to crawl to his bed. He had been in his bed since that fall with severe pain in his left hip. He had not eaten or drank anything since that time. His lower extremities were noted to be swollen. His blood pressure was elevated. He was found to have a subcapital fracture of the left femoral neck and shortening of the left hip on x-ray. He had orthopedic surgery consult and had left bipolar endoprosthesis. He is a poor historian, has no PCP. He was noted to be borderline diabetic and hypertensive during his stay. During his stay, he was also found to have fever preop and also developed leukocytosis. Due to his known history a COVID titer was drawn. He was transferred to the COVID wheeler with respiratory isolation. His hypoxia improved with incentive spirometry and leukocytosis resolved. His COVID test came back negative. He has been receiving OT and PT throughout his stay. He needs to be monitored closely with telemetry. He has got sinus bradycardia. He has had abnormalities of his electrolytes. He is having pain control, monitoring his lab values, proximal muscle weakness, balance deficits. He has got decreased activity tolerance, decreased range of motion, decreased strength, gait disturbance, limited safety awareness. He is a risk for falls. He needs cues for equipment, low endurance, unsteady gait and balance, fatigues easily, inability to care for himself and self-care deficits. These are all barriers to his discharge home. He lives at home in an apartment, was independent with ADLs and mobility prior to this. He is set up for max assist for ADLs and mod to max assist for mobility. He would like to return home at his prior level of functioning or better. COMORBIDITIES: Include rhabdomyolysis, closed hip fracture, hyperglycemia, hypoxia, swelling of lower extremities, borderline diabetes, got a history of hypertension, elevated temperature, leukocytosis, weakness and deconditioning. He has got an EF of 60% with some aortic insufficiency. PAST MEDICAL HISTORY: Really none other than hypertension. ALLERGIES: No known drug allergies. CURRENT MEDICATIONS: Really just include Norvasc 2.5 mg daily, acetaminophen 650 mg every 6 hours, Eliquis 2.5 mg b.i.d., and Nocatee 1 tab every 4 hours p.r.n. HABITS: No alcohol or tobacco use. FAMILY HISTORY: Noncontributory. SOCIAL HISTORY: The patient hopes to return back home and get back to his prior level of functioning. HISTORY AND PHYSICAL [id number] MISA MCKINNON REVIEW OF SYSTEMS: GENERAL: Does complain of some weakness and fatigue. HEENT: Denies cold, cough, or congestion. CARDIOVASCULAR: Denies any chest pain. PHYSICAL EXAMINATION: VITAL SIGNS: Stable, afebrile. His pulse is 55, blood pressure 140/65. GENERAL: A thin elderly gentleman in no acute distress upon exam. HEENT: Normocephalic and atraumatic. Mucosa moist. NECK: Supple. No lymphadenopathy. LUNGS: Clear in upper [place]. HEART: Regular rate and rhythm. He does have a holosystolic murmur. ABDOMEN: Soft, benign and nondistended. Positive bowel sounds times 4. EXTREMITIES: No clubbing, cyanosis. Does have a small amount of edema. His postop area looks good. NEUROLOGIC: He does have proximal muscle strength weakness. LABORATORY DATA: White count is 8.4, H&H of 9 and 29, and platelet count is noted to be 382. His sodium is 136, potassium 3.8, BUN and creatinine of 15 and 1.1, and blood sugar is noted to be 99. His admit UA was essentially negative. ASSESSMENT: This is a 69-year-old gentleman admitted to the rehab with a working diagnosis of status post bipolar hip prosthesis. The patient has potential to make improvement. We instituted the following multidisciplinary therapies including, but not limited to physical, occupational, respiratory, speech, nutritional services, prosthetics and orthotics. Given his complex medical condition and risk for more complications, rehabilitation services cannot be provided at a low level of care such as prison facility. PLAN: 1. Admit to [facility] for intensive inpatient therapy to include the following disciplines: A. Physical therapy to improve gait, all transfer skills and bed mobility to a modified independent level. B. Occupational therapy to improve activities of daily living. C. Case management to assist with discharge planning and placement options. D. Nutrition to assist with nutritional needs. E. Rehabilitation nursing to assist in monitoring the patient's underlying medical condition and to assist with any type of bowel or bladder management. 2. The patient's current medication and medical care will be continued. 3. The patient will be placed on standard fall precautions. 4. We will continue Eliquis for DVT and PE prophylaxis. 5. I will see again in the a.m. TRANSINT:[id number] Voice Confirmation ID: [id number] DOCUMENT ID: [id number] COLE notes whether there has been none or any medical/functional change since admission: - No change since prescreen. COLE attests patient continues to be appropriate for IRF: - Continues to be appropriate. HISTORY AND PHYSICAL [id number] MISA MCKINNON,MAYNOR STYLES MD at 1412 CC: [id number] DICTATION DATE: 01/17/20914 STRUCTURAL IRON ERECTOR: 01/17/20 0952 ADM IN [facility] [address] [id number]
--- NOTE | 2020-01-18 16:00 | NUR ---
F/C DC WITH NO PROBLEMS.
--- NOTE | 2020-01-18 20:00 | NUR ---
PATIENT RECEIVED SITTING UP IN BED. ASSESSMENT & VITAL SIGNS DONE. DRESSING C/D/I TO LEFT HIP. URINAL & CALL LIGHT WITHIN REACH. SHARA CONTINUETO MONITOR.
[2020-01-18 20:46] VITALS: BP 123/58
--- NOTE | 2020-01-19 00:15 | NUR ---
PATIENT USED CALL LIGHT FOR ASSIST. PATIENT HAD 45 ML OF URINE IN URINAL. PATIENT ENCOURAGED TO KEEP DRINKING WATER. BED LOW. ALARM ON. CALL LIGHT WITHIN REACH. WILL CONTINUE TO MONITOR.
--- NOTE | 2020-01-19 04:23 | NUR ---
I have reviewed this patient and I concur with the Shift Assessment completed by the Licensed Practical Nurse today this shift.
--- NOTE | 2020-01-19 08:10 | NUR ---
PATIENT SERVED BREAKFAST. PATIENT WISHES TO SIT UP ON SIDE OF BED TO EAT, WHILE ASSISTING PATIENT TO SIT UP, THIS NURSE NOTES THAT PATIENT HAS BEEN INCONTINENT OF STOOL. ASSISTED PATIENT TO CLEANSE AND CHANGE SOILED LINENS
[2020-01-19 09:30] VITALS: BP 120/62
[2020-01-19 19:42] VITALS: BP 139/59
--- NOTE | 2020-01-19 19:47 | NUR ---
PATIENT RECEIVED SITTING UP IN BED. ASSESSMENT & VITAL SIGNS DONE. NO C/O PAIN OR DISTRESS. MENU FILLED OUT. BED LOW. ALARM ON. CALL LIGHT & URINAL WITHIN REACH. WILL CONTINUE TO MONITOR.
--- NOTE | 2020-01-19 22:46 | NUR ---
I have reviewed this patient and I concur with the Shift Assessment completed by the Licensed Practical Nurse today this shift.
--- NOTE | 2020-01-20 02:51 | NUR ---
PATIENT EYES CLOSED. RESPIRATIONS 18 & EVEN. URINAL & CALL LIGHT WITHIN REACH. BED LOW. CALL LIGHT WITHIN REACH. WILL CONTINUE TO MONITOR.
[2020-01-20 08:00] VITALS: BP 125/64
--- NOTE | 2020-01-20 11:02 | NUR ---
SITTING UP IN BED WATCHING TV. DENIES NEEDS. USES URINAL TO VOID. CALL LIGHT IN REACH
--- NOTE | 2020-01-20 14:42 | NUR ---
RESTING QUIETLY IN BED. IS QUIET AND SLOW TO ANSWER QUESTIONS AND FOLLOW COMMANDS BUT IS HERNANDEZ X4. DENIES PAIN. DSG IN PLACE TO LEFT HIP. CALL LIGHT IN REACH
--- NOTE | 2020-01-20 18:04 | NUR ---
SITTING UP IN BED FINISHING SUPPER AND WATCHING TV. DENIES NEEDS. DSG TO LEFT HIP IN PLACE. NO DRAINAGE NOTED. CALL LIGHT IN REACH
--- NOTE | 2020-01-20 21:30 | NUR ---
PT IN BED WATCHING TV, NO NEEDS NOTED, FALL PRECAUTIONS IN PLACE, FLUIDS/CALL LIGHT WITHIN REACH
--- NOTE | 2020-01-20 23:20 | NUR ---
EMPTIED PT URINAL 300CC YELLOW URINE, FLUIDS/CALL LIGHT WITHIN REACH
[2020-01-21 01:10] VITALS: BP 156/70
[2020-01-21 08:10] VITALS: BP 143/69
[2020-01-21 08:18] LABS: BASOPHILS 0.2 % (0-2); EOSINOPHILS 2.9 % (0-7); HEMATOCRIT 30.9 % (42.0-54.0); HEMOGLOBIN 9.6 g/dL (13.5-17.5); IMMATURE GRANULOCYTES 0.3 % (0-5); LYMPHOCYTES 20.2 % (15-50); MCH 27.2 pg (26.0-34.0); MCHC 31.1 g/dL (31.0-37.0); MCV 87.5 fL (80.0-100.0); MEAN PLATELET VOLUME 9.1 fL (7.4-10.4); MONOCYTES 6.1 % (2-11); NEUTROPHILS 70.3 % (40-80); RBC 3.53 10x6/uL (4.20-6.10); RDW 16.2 % (11.5-14.5); WBC 9.7 10x3/uL (4.8-10.8)
[2020-01-21 08:20] LABS: PLATELET COUNT 590 10x3/uL (130-400)
[2020-01-21 08:25] LABS: CALCIUM 8.3 mg/dL (8.5-10.1); CARBON DIOXIDE 27.8 mmol/L (21.0-32.0); CREATININE - SERUM 1.9 mg/dL (0.6-1.3); POTASSIUM - SERUM 3.8 mmol/L (3.5-5.1)
--- NOTE | 2020-01-21 11:57 | NUR ---
Left hip dressing covering incision from surgery on 01/11/20 due to fractured femoral neck by Dr. Carballo. Incision is intact and recovered with an island dressing. Coccyx has some blanchable redness. Recommendations: 1. Turn/reposition q 2 hours while in bed (to remove pressure from coccyx region) 2. Apply a mepilex sacral dressing (large in size) for extra protection/coverage in the area 3. Remember pt is a high risk for skin breakdown due to history of fractured hip, so assess bony prominences q shift (and as needed) and note any redness. Reposition as needed off bony prominences. Consult wound care again if non-blanchable redness is noted.
--- NOTE | 2020-01-21 14:22 | NUR ---
LAYING IN BED RESTING QUIETLY. DENIES NEEDS. USES URINAL FOR VOIDING. DSG TO LEFT HIP IN PLACE. CALL LIGHT IN REACH. BED IN LOWEST POSITION. SIDE RAILS UP X2.
--- NOTE | 2020-01-21 19:55 | NUR ---
PT IS RESTING IN BED WITH EYES CLOSED. AWOKE EASILY TO VERBAL STIMULI. PT ANSWERS QUESTIONS APPROPRIATELY, BUT IS SLOW TO RESPOND. DRESSING TO LEFT HIP INCISION IS CDI. NO DRAINAGE NOTED. SR'S ARE UP X 2 IN BED. CALL LIGHT AND BEDSIDE TABLE ARE WITHIN EASY REACH.
[2020-01-21 20:11] VITALS: BP 154/70
--- NOTE | 2020-01-21 22:07 | NUR ---
PT RESTING QUIETLY IN BED WITH EYES CLOSED. RESPS ARE EVEN AND UNLABORED. NO ACUTE DISTRESS NOTED.
--- NOTE | 2020-01-22 00:08 | NUR ---
I have reviewed this patient and I concur with the Shift Assessment completed by the Licensed Practical Nurse today this shift.
--- NOTE | 2020-01-22 05:44 | NUR ---
PT RESTING IN BED WITH EYES CLOSED. NO ACUTE DISTRESS NOTED.
[2020-01-22 08:57] VITALS: BP 142/61
--- NOTE | 2020-01-22 13:54 | NUR ---
Nutrition follow-up: Diet: Regular PO intake ~70% of last 9 meals Labs reviewed Wt: 130# admit wt PO intake fair to good at meals RDN following.
[2020-01-22 13:59] VITALS: BP 142/61
--- NOTE | 2020-01-22 19:20 | NUR ---
GREETED PATIENT AND INTRODUCED MYSELF HIS NURSE. PATIENT IS RESTING IN BED QUIETLY. RESPIRATIONS EVEN. NO S/S OF DISTRESS. STATES PAIN IS 5/10 IN LEFT HIP BUT IS REFUSING PAIN MEDICATION AT THIS TIME. CALL LIGHT IN REACH.
[2020-01-22 20:00] VITALS: BP 150/66
--- NOTE | 2020-01-23 02:32 | NUR ---
PT RESTING QUIETLY WITH EYES CLOSED. RESPIRATIONS EVEN. NO S/S OF DISTRESS. CALL LIGHT IN REACH.
--- NOTE | 2020-01-23 05:45 | NUR ---
GOT PATIENT UP AND GAVE BED BATH AND CHANGED LINENS. PATIENT HAD REFUSED TO TAKE A SHOWER EARLIER IN THE EVENING, DUE TO HYGIENE IT WAS DETERMINED THAT PATIENT NEEDED A BATH. CALL LIGHT IN REACH.
[2020-01-23 07:15] LABS: BASOPHILS 0.1 % (0-2); EOSINOPHILS 2.9 % (0-7); HEMATOCRIT 27.5 % (42.0-54.0); HEMOGLOBIN 8.6 g/dL (13.5-17.5); IMMATURE GRANULOCYTES 0.1 % (0-5); LYMPHOCYTES 21.9 % (15-50); MCH 27.5 pg (26.0-34.0); MCHC 31.3 g/dL (31.0-37.0); MCV 87.9 fL (80.0-100.0); MEAN PLATELET VOLUME 8.9 fL (7.4-10.4); MONOCYTES 7.4 % (2-11); NEUTROPHILS 67.6 % (40-80); PLATELET COUNT 561 10x3/uL (130-400); RBC 3.13 10x6/uL (4.20-6.10); RDW 16.1 % (11.5-14.5); WBC 8.9 10x3/uL (4.8-10.8)
[2020-01-23 07:27] LABS: ANION GAP 11.1 mmol/L (8-16); CALCIUM 8.5 mg/dL (8.5-10.1); CARBON DIOXIDE 29.5 mmol/L (21.0-32.0); CREATININE - SERUM 2.2 mg/dL (0.6-1.3)
[2020-01-23 07:28] LABS: POTASSIUM - SERUM 4.6 mmol/L (3.5-5.1)
[2020-01-23 08:00] VITALS: BP 135/59
--- NOTE | 2020-01-23 08:00 | NUR ---
JUST FINISHED BREAKFAST.INCONT OF URINE AND LARGE BROWN BM.TAKEN TO BATHROOM AND CLEANED.ENCOURAGED TO USE CL TO GO TO BATHROOM IF NEED.ENCOURAGED CONTINENTCE.
--- NOTE | 2020-01-23 14:14 | NUR ---
CARE TEAM MEETING: PATIENT IS SLOWLY PROGRESSING IN THERAPY TENATIVE DISCHARGE DATE IS 02/01/20. WILL CONTINUE TO FOLLOW WITH PATIENT.
--- NOTE | 2020-01-23 16:30 | NUR ---
CLINICAL UPDATES [facility]ED TO [facility] , AUTH. # [id number] WITH TENATIVE DISCHARGE DATE OF 02/01/20. WILL CONTINUE TO FOLLOW WITH PATIENT.
--- NOTE | 2020-01-23 20:00 | NUR ---
PATIENT RECEIVED SITTING UP IN BED. ASSESSMENT & VITAL SIGNS DONE. NO C/O PAIN OR DISTRESS. BED LOW. ALARM ON. CALL LIGHT & URINAL WITHIN REACH. WILL CONTINUE TO MONITOR.
--- NOTE | 2020-01-23 20:30 | NUR ---
PATIENT HAD INCONTINENT BM IN BED. ASSISTANT PROFESSOR OF PHYSICS CHANGED & CLEANED HIM UP. PATIENT HAD 500 CC IN URINAL. PATIENT BED LOW. ALARM ON. CALL LIGHT WITHIN REACH. WILL CONTINUE TO MONITOR.
[2020-01-23 21:08] VITALS: BP 140/61
--- NOTE | 2020-01-23 23:30 | NUR ---
PATIENT ON ROUNDS HAD INCONTINENT BM. VIDEO GAME TECHNICIAN CLEANED PATIENT UP. EMPTIED 100 CC OF YELLOW COLORED URINE. BED LOW. ALARM ON. CALL LIGHT WITHIN REACH. WILL CONTINUE TO MONITOR.
--- NOTE | 2020-01-24 03:54 | NUR ---
I have reviewed this patient and I concur with the Shift Assessment completed by the Licensed Practical Nurse today this shift.
[2020-01-24 08:00] VITALS: BP 166/77
--- NOTE | 2020-01-24 09:56 | NUR ---
SITTING UP IN WC. DENIES NEEDS OR C/O
--- NOTE | 2020-01-24 11:44 | NUR ---
SPOKE WITH CHAD FROM [facility] AND PATIENT HAS DAYS UNTIL 01-30-20, UPDATES TO BE FAXED ON 01/29/20, AUTH. # [id number]. WILL CONTINUE TINUE TO FOLLOW WITH PATIENT.
--- NOTE | 2020-01-24 12:07 | NUR ---
SITTING IN WC IN ROOM. JUST FINISHED WITH THERAPY. SMALL AMOUNT OF CLEAR LIQUID ON DRESSING TO LEFT HIP BUT INCISION IS DRY.....NATALIA CLOSING INCISION IS NOTED AND NO S/S INFECTION NOTED.
[2020-01-24 19:48] VITALS: BP 151/66
--- NOTE | 2020-01-24 19:55 | NUR ---
PATIENT RECEIVED SITTING ON COMMODE. PATIENT STANDBY ASSIST TO BED. LEFT LEG ELEVATED. ASSESSMENT & VITAL SIGNS DONE. BED LOW. CALL LIGHT WITHIN REACH. WILL CONTINUE TO MONITOR.
--- NOTE | 2020-01-24 20:05 | NUR ---
PATIENT RECEIVED SITTING UP IN BED. ASSESSMENT & VITAL SIGNS DONE. MENU FILLED OUT BY THIS NURSE & PATIENT. URINAL WITHIN REACH. BED LOW. ALARM ON. CALL LIGHT WITHIN REACH. WILL CONTINUE TO MONITOR.
--- NOTE | 2020-01-24 23:37 | NUR ---
I have reviewed this patient and I concur with the Shift Assessment completed by the Licensed Practical Nurse today this shift.
--- NOTE | 2020-01-24 23:49 | NUR ---
PATIENT EYES CLOSED. RESPIRATIONS 18 & EVEN. BED LOW. ALARM ON. CALL LIGHT WITHIN REACH. WILL CONTINUE TO MONITOR.
--- NOTE | 2020-01-25 04:45 | NUR ---
PATIENT GIVEN BED BATH. URINAL EMPTIED. YELLOW COLOR URINE. LEFT HIP DRESSING REMOVED. 24 NATALIA INTACT, NO DRAINAGE OR REDNESS. [place] DRESSING APPLIED. BED LOW. ALARM ON. CALL LIGHT WITHIN REACH. WILL CONTINUE TO MONITOR.
[2020-01-25 07:09] LABS: BASOPHILS 0.2 % (0-2); EOSINOPHILS 4.7 % (0-7); HEMATOCRIT 28.6 % (42.0-54.0); HEMOGLOBIN 8.8 g/dL (13.5-17.5); IMMATURE GRANULOCYTES 0.2 % (0-5); LYMPHOCYTES 27.3 % (15-50); MCH 27.2 pg (26.0-34.0); MCHC 30.8 g/dL (31.0-37.0); MCV 88.5 fL (80.0-100.0); MEAN PLATELET VOLUME 8.8 fL (7.4-10.4); NEUTROPHILS 61.6 % (40-80); PLATELET COUNT 541 10x3/uL (130-400); RBC 3.23 10x6/uL (4.20-6.10); RDW 16.2 % (11.5-14.5); WBC 6.6 10x3/uL (4.8-10.8)
[2020-01-25 07:27] LABS: ANION GAP 13.1 mmol/L (8-16); CALCIUM 8.6 mg/dL (8.5-10.1); CARBON DIOXIDE 27.4 mmol/L (21.0-32.0); CREATININE - SERUM 2.8 mg/dL (0.6-1.3); POTASSIUM - SERUM 4.5 mmol/L (3.5-5.1)
[2020-01-25 07:33] VITALS: BP 148/69
--- NOTE | 2020-01-25 08:05 | NUR ---
AWAKE AND ALERT WATCHING TV, NO S/S OF DISTRESS NOTED, DENIES ANY PAIN AT THIS TIME.
[2020-01-25 09:26] VITALS: BP 148/69
--- NOTE | 2020-01-25 12:30 | NUR ---
UP IN W/C EATING LUNCH, DENIES ANY NEEDS AT THIS TIME, C/L AND H2O IN REACH
--- NOTE | 2020-01-25 16:24 | NUR ---
RESTING IN BED WATCHING TV, DENIES ANY PAIN OR NEEDS AT THIS TIME, C/L AND H2O IN REACH.
--- NOTE | 2020-01-25 19:11 | NUR ---
PT IN BED WATCHING TV, OUT OF WATER, GAVE BOTTLE OF WATER AND CUP OF ICE, NO OTHER NEEDS NOTED, CALL LIGHT WITHIN REACH, FALL PRECAUTIONS IN PLACE
--- NOTE | 2020-01-25 23:02 | NUR ---
PT C/O 03/19 LFT HIP PAIN, PRN NORCO GIVEN WITH MED PASS, REASSESSMENT 01/17 PAIN, URINAL EMPTIED 700ML, FLUIDS/CALL LIGHT WITHIN REACH
[2020-01-26 00:17] VITALS: BP 165/54
--- NOTE | 2020-01-26 08:00 | NUR ---
SHIFT ASSMT COMPLETED.
[2020-01-26 08:11] VITALS: BP 151/65
--- NOTE | 2020-01-26 20:05 | NUR ---
PT IN BED WATCHING TV, NO NEEDS NOTED, PT VARIES FROM DAY TO DAY WHEN ASKED A QUESTION WHETHER HE ANSWERS QUICKLY OR NEEDS TIME TO PROCESS, TODAY PROCESSING FASTER THAN NORMAL, FALL PRECAUTIONS IN PLACE, FLUIDS/CALL LIGHT WITHIN REACH
--- NOTE | 2020-01-26 23:55 | NUR ---
AT 2230 PT HAD INCONTINENCE EPISODE, PT WAS CLEANED, FULL BED CHANGE, FLUIDS/CALL LIGHT WITHIN REACH
[2020-01-27 00:44] VITALS: BP 140/65
[2020-01-27 08:00] VITALS: BP 146/56
--- NOTE | 2020-01-27 08:00 | NUR ---
SHIFT ASSMT COMPLETED.INCONT EPISODES THIS AM OF URINE AND BM.ENC TO CALL FOR BATHROOM NEEDS.
--- NOTE | 2020-01-27 16:00 | NUR ---
INCONTINENT OF B&B;STUFFED BRIEF WITH TISSUE.HAD ASKED FOR WASH CLOTH;ASKED IF HE NEEDED TO GO TO BATHROOM BUT DENIED.LATER PATIENT ASKED TO GO AFTER BEING INCONTINENT.PLACED IN WC AND TAKEN TO BATHROOM;NOTED PT TEARFUL AND ASKED WHAT WAS WRONG AND HE DID NOT ANSWER.CLEANED PT AND RETURNED TO BED.
--- NOTE | 2020-01-27 19:40 | NUR ---
PT IN BED, HAD INCONTINENT B&B, DAY NURSE HELPED CLEAN AND CHANGE PT, PT WILL SAY NO WHEN ASKED IF NEEDS TO TOILET, WILL CONTINUE TO Q/2/HR B&B TRAIN, FALL PRECAUTIONS IN PLACE, FLUIDS/CALL LIGHT WITHIN REACH
[2020-01-27 20:00] VITALS: BP 145/64
--- NOTE | 2020-01-27 21:12 | NUR ---
PT HAVING LOOSE FREQUENT STOOL HELD DOLCUSATE
[2020-01-28 06:01] LABS: BASOPHILS 0.3 % (0-2); EOSINOPHILS 2.6 % (0-7); HEMATOCRIT 30.3 % (42.0-54.0); HEMOGLOBIN 9.3 g/dL (13.5-17.5); IMMATURE GRANULOCYTES 0.2 % (0-5); LYMPHOCYTES 31.9 % (15-50); MCH 27.4 pg (26.0-34.0); MCHC 30.7 g/dL (31.0-37.0); MCV 89.4 fL (80.0-100.0); MEAN PLATELET VOLUME 9.3 fL (7.4-10.4); MONOCYTES 4.9 % (2-11); NEUTROPHILS 60.1 % (40-80); PLATELET COUNT 483 10x3/uL (130-400); RBC 3.39 10x6/uL (4.20-6.10); RDW 16.4 % (11.5-14.5); WBC 6.5 10x3/uL (4.8-10.8)
[2020-01-28 06:22] LABS: ANION GAP 10.6 mmol/L (8-16); CALCIUM 9.2 mg/dL (8.5-10.1); CARBON DIOXIDE 29.5 mmol/L (21.0-32.0); CREATININE - SERUM 2.4 mg/dL (0.6-1.3); POTASSIUM - SERUM 4.1 mmol/L (3.5-5.1)
[2020-01-28 08:09] VITALS: BP 168/73
--- NOTE | 2020-01-28 12:26 | NUR ---
SITTING UP IN BED EATING LUNCH. CALL LIGHT IN REACH
--- NOTE | 2020-01-28 14:29 | NUR ---
DENIES NEEDS OR C/O. CALL LIGHT IN REACH. MOVING MUCH BETTER AND EASIER TODAY THAN BEFORE.
[2020-01-28 20:00] VITALS: BP 122/55
--- NOTE | 2020-01-28 20:00 | NUR ---
PT IS RESTING IN BED WITH EYES OPEN. ALERT AND ORIENTED X 3. DENIES ACUTE PAIN OR DISCOMFORT AT THIS TIME. NO NEEDS VOICED. VSS. DRESSING TO LEFT HIP INCISION IS CDI. NO DRAINAGE NOTED. PT URING URINAL PRN. SR'S ARE UP X 2 IN BED. CALL LIGHT AND BEDSIDE TABLE ARE WITHIN EASY REACH.
--- NOTE | 2020-01-28 23:57 | NUR ---
RESTING IN BED WITH EYES CLOSED.
--- NOTE | 2020-01-29 02:00 | NUR ---
PT RESTING IN BED WITH EYES CLOSED. URINAL EMPTIED.
--- NOTE | 2020-01-29 07:20 | NUR ---
INCONT OF URINE AND STOOL IN BED. PT AND BED CLEANED UP. FRESH BRIEF ON PT. HE TRANSFERED WITH NO ASST TO . CALL LIGHT IN REACH
[2020-01-29 08:00] VITALS: BP 159/56
--- NOTE | 2020-01-29 13:19 | NUR ---
Nutrition follow-up: Diet: Regular PO itnake increased to ~89% average of last 9 meals Labs reviewed Wt: 129# - admit wt +NM, frequent, loose PO intake good at this time RDN following.
--- NOTE | 2020-01-29 15:54 | NUR ---
LAYING IN BED QUIETLY. EYES CLOSED. RESP EFFORT NON LABORED. SIDE RAILS UP X2. BED IN LOWEST POSITION. CALL LIGHT IN REACH
--- NOTE | 2020-01-29 20:00 | NUR ---
PATIENT URINAL EMPTIED OF 300 CC OF CLEAR YELLOW COLORED URINE. BED LOW. ALARM ON. CALL LIGHT WITHIN REACH. WILL CONTINUE TO MONITOR.
--- NOTE | 2020-01-29 20:20 | NUR ---
PATIENT RECEIVED SITTING UP IN BED. ASSESSMENT & VITAL SIGNS DONE. NO C/O PAIN OR DISTRESS AT THIS TIME. LEFT HIP INCISION APPROXIMATED & NATALIA INTACT. ALARM ON. BED LOW. CALL LIGHT WITHIN REACH. WILL CONTINUE TO MONITOR.
[2020-01-29 20:47] VITALS: BP 152/69
--- NOTE | 2020-01-30 02:15 | NUR ---
PATIENT URINAL EMPTIED OF 400 CC OF URINE. BED LOW. ALARM ON. CALL LIGHT WITHINREACH. SHARA CONTINUE TO MONITOR.
--- NOTE | 2020-01-30 04:12 | NUR ---
I have reviewed this patient and I concur with the Shift Assessment completed by the Licensed Practical Nurse today this shift.
[2020-01-30 06:46] LABS: BASOPHILS 0.4 % (0-2); EOSINOPHILS 2.6 % (0-7); HEMATOCRIT 27.9 % (42.0-54.0); HEMOGLOBIN 8.5 g/dL (13.5-17.5); IMMATURE GRANULOCYTES 0.2 % (0-5); LYMPHOCYTES 29.6 % (15-50); MCH 27.1 pg (26.0-34.0); MCHC 30.5 g/dL (31.0-37.0); MCV 88.9 fL (80.0-100.0); MEAN PLATELET VOLUME 9.3 fL (7.4-10.4); MONOCYTES 7.4 % (2-11); NEUTROPHILS 59.8 % (40-80); PLATELET COUNT 395 10x3/uL (130-400); RBC 3.14 10x6/uL (4.20-6.10); RDW 16.3 % (11.5-14.5); WBC 5.7 10x3/uL (4.8-10.8)
[2020-01-30 07:01] LABS: ANION GAP 12.8 mmol/L (8-16); CALCIUM 8.8 mg/dL (8.5-10.1); CARBON DIOXIDE 27.4 mmol/L (21.0-32.0); CREATININE - SERUM 1.9 mg/dL (0.6-1.3); POTASSIUM - SERUM 4.2 mmol/L (3.5-5.1)
[2020-01-30 08:00] VITALS: BP 158/70
--- NOTE | 2020-01-30 08:00 | NUR ---
SHIFT ASSMT COMPLETED.
--- NOTE | 2020-01-30 12:00 | NUR ---
SITTING UP IN CHAIR EATING.
--- NOTE | 2020-01-30 15:23 | NUR ---
CARE TEAM MEETING: PATIENT IS PROGRESSING IN THERPY AND A REFERRAL HAS BEEN FAXED TO [facility]. WILL CONTINUE TO FOLLOW WITH PATIENT. TENATIVE DISCHARGE DATE IS 02/01/20.
--- NOTE | 2020-01-30 15:39 | NUR ---
CLINICAL UPDATES FAXED 01/29/20 [facility] , REGARDING AUTH. # [id number] WITH CONFORMATION RECIEVED
--- NOTE | 2020-01-30 19:23 | NUR ---
PT IN BED WATCHING TV, NO NEEDS NOTED, FALL PRECAUTIONS IN PLACE, FLUIDS/CALL LIGHT WITHIN REACH
[2020-01-30 21:53] VITALS: BP 134/63
--- NOTE | 2020-01-30 22:30 | NUR ---
PT INCONTINENT OF URINE, CLEANED, CHANGED, FULL BED CHANGE, LOTIONED LEGS, VERY DRY FLAKING, PT STATES WILL TAKE SHOWER AT 0400, FALL PRECAUTIONS IN PLACE, FLUIDS/CALL LIGHT WITHIN REACH
[2020-01-31 07:50] VITALS: BP 151/71
--- NOTE | 2020-01-31 15:59 | NUR ---
SPOKE WITH KELLI AMIN FROM [facility] AND THEY HAVE APPROVED FOR PATIENT TO DISCHARGE TO [facility]. AN APPOINTMENT WITH DR. SHUKLA WILL BE MADE AT TIME OF DISCHARGE FROM FACILITY. [facility] HAS BEEN SIGNED FOR SNF CHOICE WITH [facility] FORMS SINGED, ONE GIVEN TO PATIENT AND ONE FILED IN CHART.DISCHARGE INSTRUCTIONS WILLBE FAXED TO FACILITY IN AM AND REVIEWED WITH PATIENT PER PRIMARY NURSE.
[2020-01-31 19:00] VITALS: BP 143/66
--- NOTE | 2020-01-31 21:44 | NUR ---
PT IN BED, NO NEEDS NOTED, FALL PRECAUTIONS IN PLACE, FLUIDS/CALL LIGHT WITHIN REACH
--- NOTE | 2020-02-01 03:06 | NUR ---
PT ASLEEP AROUSES EASILY TO VOICE, FLUIDS/CALL LIGHT WITHIN REACH
[2020-02-01 05:14] LABS: BASOPHILS 0.4 % (0-2); EOSINOPHILS 3.3 % (0-7); HEMATOCRIT 27.9 % (42.0-54.0); HEMOGLOBIN 8.6 g/dL (13.5-17.5); IMMATURE GRANULOCYTES 0.2 % (0-5); MCH 27.2 pg (26.0-34.0); MCHC 30.8 g/dL (31.0-37.0); MCV 88.3 fL (80.0-100.0); MEAN PLATELET VOLUME 9.4 fL (7.4-10.4); MONOCYTES 8.2 % (2-11); NEUTROPHILS 42.9 % (40-80); PLATELET COUNT 328 10x3/uL (130-400); RBC 3.16 10x6/uL (4.20-6.10); RDW 16.2 % (11.5-14.5); WBC 5.4 10x3/uL (4.8-10.8)
[2020-02-01 05:26] LABS: ANION GAP 11.8 mmol/L (8-16); CALCIUM 8.6 mg/dL (8.5-10.1); CREATININE - SERUM 1.6 mg/dL (0.6-1.3); POTASSIUM - SERUM 3.8 mmol/L (3.5-5.1)
--- NOTE | 2020-02-01 07:30 | NUR ---
A/A/0X4. DENIES ANY PAIN OR NEED OF MEDICATION AT THIS TIME AN NO VOICED REQUESTS. LEFT HIP INCISION C/D/I WITH STERI STRIPS IN PLACE. CALL LIGHT IN REACH, SIDERAILS UP X 2 AND BED IN LOW LOCKED POSITION.
[2020-02-01 07:45] VITALS: BP 161/93
[2020-02-01] MEDS ORDERED: COLACE100 MG PO (08:16)
[2020-02-01] MEDS ORDERED: CALMOSEPTINE OI71 GM TOPICAL (08:17)
[2020-02-01] MEDS ORDERED: MIRALAX17 GM PO (08:17)
[2020-02-01] MEDS ORDERED: ACETAMINOPHEN325 MG PO (08:17)
--- NOTE | 2020-02-01 11:15 | NUR ---
HAD LARGE STOOL INCONTINENT. CLEANED AND MADE COMFORTABLE. NO REQUESTS.
--- NOTE | 2020-02-01 11:19 | NUR ---
Agree with Anjelica Germain LPN assessment, the patient denies needs.
--- NOTE | 2020-02-01 13:57 | NUR ---
DISCHARGE INSTRUCTIONS REVIEWED WITH PT AND HAS NO QUESTIONS. COPY OF DISCHARGE AND RECORDS FAXED TO [facility] AND REPORT CALLED TO DENNIS JACKSON. PT LEFT FLOOR VIA W/C WITH ALL PERSONAL BELONGINGS. LEFT FACILITY VIA TRANSPORT VAN.
== END 2020-02-01 13:57 | DRG 560 ==
LOC: D.REHAB 14:08
PROVIDERS: ADMIT Emergency Medicine; ATTEND Emergency Medicine
DX: S72.002D Fracture of unspecified part of neck of left femur, subsequent encounter for closed fracture with routine healing (principal); M62.82 Rhabdomyolysis; B02.8 Zoster with other complications; I10 Essential (primary) hypertension; E11.65 Type 2 diabetes mellitus with hyperglycemia; D72.810 Lymphocytopenia; R09.02 Hypoxemia